=== PATIENT | female | born 1940 | race Caucasian/White ===

== ENCOUNTER 2018-03-14 10:05 | Outpatient (CLI) | payer MEDICARE, OTHER, SELFPAY | END 2018-03-14 10:25 | PROVIDERS: PCP Internal Medicine; Visit Provider Student in an Organized Health Care Education/Training Program | DX: R06.02 Shortness of breath (principal); J44.9 Chronic obstructive pulmonary disease, unspecified; R55 Syncope and collapse | CPT/HCPCS: 94762 ==

== ENCOUNTER → 2018-04-08 10:38 | Outpatient (BNVA) | payer MEDICARE, OTHER, SELFPAY | PROVIDERS: PCP Internal Medicine; Referring Provider Internal Medicine; Visit Provider Psychiatry & Neurology Neurology | DX: S06.0X9A Concussion with loss of consciousness of unspecified duration, initial encounter (principal); V89.2XXA Person injured in unspecified motor-vehicle accident, traffic, initial encounter; J44.9 Chronic obstructive pulmonary disease, unspecified; Z87.891 Personal history of nicotine dependence | CPT/HCPCS: 99205; 99215 ==

== ENCOUNTER 2018-07-07 00:32 | Outpatient (CLI) | payer MEDICARE, OTHER, SELFPAY ==
--- NOTE | 2018-07-07 12:41 | DI.CT_ITS ---
SYMPTOMS/DIAGNOSIS: F/U SURVEILLANCE OF 1 CM NODULE INCIDENTALLY SEEN AT [facility] SCAN, R91.[address]: Comparison is made with November,. A noncontrast exam was performed. There is a mass in the posterior right lower lobe abutting the pleura measuring 1.9 cm in diameter. The borders are mildly spiculated. There is mild stranding in the surrounding lung parenchyma. No abnormality was seen in this area on the previous exam. There is no evidence of bony destruction or pleural thickening. No pleural or pericardial effusions or acute infiltrates are seen. Severe underlying emphysematous changes are again noted. There is stable atelectasis at the inferior right middle lobe at the fissure. Atelectasis also is seen in the lingula. Mild atelectasis verus scarring is noted in the left lower lobe. No adenopathy is seen. The patient is noted to be status post cholecystectomy. No adrenal masses are seen. IMPRESSION: A 1.9 cm right lower lobe mass is suspicious for a primary lung carcinoma. Metastatic disease is less likely. Severe underlying emphysematous changes are noted. There is stable right middle lobe linear atelectasis.
== END 2018-07-07 00:52 ==
PROVIDERS: PCP Internal Medicine; Visit Provider Family Medicine
DX: R91.1 Solitary pulmonary nodule (principal); R91.8 Other nonspecific abnormal finding of lung field; J43.8 Other emphysema
CPT/HCPCS: 71250

== ENCOUNTER 2018-09-02 09:57 | Outpatient (CLI) | payer MEDICARE, OTHER, SELFPAY ==
--- NOTE | 2018-09-02 09:00 | DI.RAD_ITS ---
SYMPTOM/DIAGNOSIS: DYSPNEA, ? PNEUMONIA, R06.00 PA AND LATERAL CHEST: Comparison is made with CT scan of 07/07/18. Heart size and pulmonary vasculature are within normal limits. The lungs are hyperinflated consistent with underlying COPD. No focal infiltrates, effusions or pneumothoraces are identified. Visually there does not appear to be any significant change in size of the right lower lobe pulmonary mass. There is again seen thickening of the inferior aspect of the right major fissure. Degenerative changes are seen in the spine. IMPRESSION: 1. No acute pulmonary process. 2. Stable right lower lobe pulmonary mass and pleural thickening. 3. COPD.
== END 2018-09-02 10:17 ==
PROVIDERS: PCP Internal Medicine; Visit Provider Internal Medicine
DX: R06.00 Dyspnea, unspecified (principal); J44.9 Chronic obstructive pulmonary disease, unspecified; R91.8 Other nonspecific abnormal finding of lung field
CPT/HCPCS: 71046

== ENCOUNTER 2018-12-26 09:37 | Outpatient (CLI) | payer MEDICARE, OTHER, SELFPAY ==
--- NOTE | 2018-12-26 09:30 | DI.RAD_ITS ---
SYMPTOM/DIAGNOSIS: H/O LUNG CA, SMALL PNEUMO ON RT FISSURE ON CT FRONTAL AND LATERAL CHEST: The most recent available chest xray is 09/02/18. The patient has had a prior CT scan on 12/22/18 which is not available at this time for direct comparison. The heart size and pulmonary vasculature are within normal limits. The lungs appear hyperinflated suggesting underlying COPD. The left lung is clear. There is blunting of the right costophrenic angle suggesting a small pleural effusion. There is a small opacification in the right middle lobe which may represent atelectasis or pneumonia. Scarring cannot be excluded. No definite pneumothorax is appreciated. Degenerative changes are seen in the spine. IMPRESSION: 1. Prior CT examination from 12/22/18 is not available for comparison. 2. No definite large pneumothorax is appreciated. 3. Opacity in the right middle lobe which may represent a combination of scarring, atelectasis or pneumonia. 4. Blunting of the right costophrenic angle suspicious for a tiny right pleural effusion.
== END 2018-12-26 09:57 ==
PROVIDERS: PCP Internal Medicine; Visit Provider Family Medicine
DX: J93.9 Pneumothorax, unspecified (principal); J98.4 Other disorders of lung; R91.8 Other nonspecific abnormal finding of lung field; J44.9 Chronic obstructive pulmonary disease, unspecified
CPT/HCPCS: 71046

== ENCOUNTER 2019-05-14 02:21 | Outpatient (CLI) | payer MEDICARE, OTHER, SELFPAY ==
--- NOTE | 2019-05-14 16:59 | DI.DEXA_ITS ---
EXAM: XR DEXA BONE DENSITY W/WO JUAN CLINICAL HISTORY: atraumatic rib fracture, Z78.0 SCREENING FOR OSTEOPOROSIS IN POSTMENOPAUSAL,s22.31 xa COMPARISON: No exams were available for comparison FINDINGS: DEXA scan was performed according to the usual protocol. Findings for left hip scanning are T-score -4.2 with left femoral neck T-score -3.8. Lumbar spine scanning shows T-score -3.6. Left forearm scanning shows T-score -4.5. IMPRESSION: Findings consistent with osteoporosis. There is at least 1 mid thoracic vertebral compression fractur e.
== END 2019-05-14 02:41 ==
PROVIDERS: PCP Internal Medicine; Visit Provider Internal Medicine
DX: M81.0 Age-related osteoporosis without current pathological fracture (principal); Z78.0 Asymptomatic menopausal state
CPT/HCPCS: 77080